=== PATIENT | female | born 1995 | race Caucasian/White ===

== ENCOUNTER 2017-03-25 18:12 | Emergency (ER) | payer OTHER ==
[~2017-03-25] VITALS: Ht 162.6 cm; Wt 90.7 kg
[~2017-03-25 18:12] MED LIST: BENADRYL25 MG PO; CHILD IBUP100 MG/5 M PO; CIPRO 500MG (E500 MG PO; CLEOCIN HCL300 M1 PO; CLEOCIN PA75 MG/5 ML PO; IBU600 MG PO; KETOROLAC TROME10 M1 PO; MACROBID 100 M100 MG PO; MOTRIN800 MG PO; NAPROSYN500 M1 PO; PEPCID20 M1 PO; PREDNISONE10 M2 PO; SULFATRIM 800-120 ML PO; TRAMADOL HCL50 M1 PO; ZOFRAN ODT4 M1 SL; ZOFRAN4 M1 SL; ZOFRAN4 MG PO
[2017-03-25 18:16] VITALS: BP 137/75
== END 2017-03-25 19:00 | disposition admitted as inpatient to this hospital (09) ==
LOC: ERH 18:12
DX: R21 Rash and other nonspecific skin eruption (principal)

== ENCOUNTER 2017-05-01 17:24 | Emergency (ER) | payer SELFPAY ==
[~2017-05-01] VITALS: Ht 165.1 cm; Wt 52.2 kg
[2017-05-01 17:36] VITALS: BP 120/78
[2017-05-01 17:50] LABS: ABSOLUTE BASOPHIL COUNT 0 /CUMM (0.0-0.2); ABSOLUTE EOSINOPHIL COUNT 0.3 /CUMM (0.0-0.7); ABSOLUTE LYMPH COUNT 2.4 /CUMM (1.2-3.4); ABSOLUTE MONOCYTE COUNT 0.8 /CUMM (0.10-0.60); BASOPHIL % 0.3 % (0.0-2.0); EOSINOPHIL % 2.5 % (0-5); GRANULOCYTE % 69.5 % (42.2-75.2); MEAN CORPUSCULAR VOLUME 84.9 FL (81.0-99.0); MEAN PLATELET VOLUME 7.7 FL (7.4-10.4); PLATELET COUNT 281 /CUMM (130-400); RBC DISTRIBUTION WIDTH 13.2 % (11.5-14.5); RED BLOOD CELL CT 4.71 /CUMM (4.20-5.40); WHITE BLOOD CELL COUNT 11.5 /CUMM (4.8-10.8)
[2017-05-01 18:00] LABS: PT 11.7 SEC (9.4-12.5); PTT 32 SEC (25-37)
--- NOTE | 2017-05-01 20:20 | CT SCAN REPORT ---
EXAMINATION: CT ABDOMEN AND PELVIS WITHOUT CONTRAST CLINICAL INFORMATION: Right lower quadrant pain. COMPARISON: None TECHNIQUE: Multidetector volumetric imaging was performed from the superior aspect of the liver through the pubic symphysis. Sagittal and coronal reformatted images were obtained on the technologist's workstation. DLP: 781.6 mGy-cm FINDINGS: LUNG BASES: The visualized lung bases are unremarkable. LIVER, GALLBLADDER, AND BILIARY TREE: The liver is normal in size, shape, and attenuation. Focal fatty infiltration noted around the falciform ligament. No biliary ductal dilatation is present. The gallbladder is not clearly seen. PANCREAS: Unremarkable. SPLEEN: Unremarkable. ADRENAL GLANDS: Unremarkable. KIDNEYS AND URETERS: The kidneys are normal in size, shape, and attenuation. No hydronephrosis, hydroureter, or calculi seen. No perinephric stranding. BLADDER: Unremarkable. GASTROINTESTINAL TRACT: The small and large bowel are unremarkable. The appendix is unremarkable. There is a moderate amount of stool in the rectosigmoid colon. ABDOMINAL WALL: No significant hernia is appreciated. LYMPH NODES: Normal. VASCULAR: Unremarkable. PELVIC VISCERA: Unremarkable. OSSEOUS STRUCTURES: Unremarkable. IMPRESSION: No acute intra-abdominal or pelvic process. No evidence of appendicitis. No nephrolithiasis or hydronephrosis.
--- NOTE | 2017-05-01 20:44 | ED GI/GU/ABDOMINAL COMPLAINT ---
History of Present Illness General Chief Complaint: Female Urogenital Problems Stated Complaint: BIBA FOR EVAL VAGINAL BLEED Source: patient Exam Limitations: no limitations Vital Signs & Intake/Output Vital Signs & Intake/Output Vital Signs Date Time Temp Pulse Resp B/P B/P Pulse O2 O2 Flow FiO2 Mean Ox Delivery Rate 05/01 1736 98.0 76 15 120/78 99 Room Air Room Air Allergies Coded Allergies: amoxicillin (Intermediate, HIVES 01/09/17) Reconcile Medications Clindamycin HCl (Cleocin HCl) 300 MG CAPSULE 1 CAP PO TID CELLULITIS Ibuprofen (Child Ibuprofen) 100 MG/5 ML ORAL.SUSP 30 ML PO Q6P PRN pain, fever Naproxen (Naprosyn) 500 MG TABLET 1 TAB PO BID PRN PAIN Nitrofurantoin Monohyd/M-Cryst (Macrobid 100 MG Capsule) 100 MG CAPSULE 1 CAP PO BID UTI with food Ondansetron (Zofran Odt) 4 MG TAB.RAPDIS 1 TAB SL TID PRN NAUSEA Sulfamethoxazole/Trimethoprim (Sulfatrim 800-160 MG/20 Ml Summer) 800 MG-160 MG/20 ML ORAL.SUSP 20 ML PO BID cellulitis Triage Note: PT BIBA FROM HOME FOR C/C OF SPOTTING AND ABD CRAMPING. LAST PERIOD MARCH. UNSURE IF . HX OF MISCARRIAGE LAST YEAR. SOME NAUSEA WITHOUT VOMITING. Triage Nurses Notes Reviewed? yes LMP (ages 10-50): now ? n Is pt currently ? No Onset: Gradual Duration: day(s): (2), changing over time, continues in ED Timing: recent history Quality/Severity: cramping Severity Numbers: 6 Location: suprapubic Radiation: no radiation Activities at Onset: none Prior Abdominal Problems: similar symptoms Sexually Active: Yes Last Time You Were Sexual: less than 2 months ago Use of Protection: No No Modifying Factors: none Associated Symptoms: abdominal pain, nausea/vomiting HPI: 22-year-old female past medical history depression presents for evaluation of nausea abdominal/pelvic cramping and vaginal bleeding. Patient states symptoms started about 2 days ago and have been intermittent. She states that the bleeding is dark red blood and is spotting. She states it feels similar to a period. There is been no passage of clots. She reports that abdominal cramping is located in the superpubic area and does not radiate. It is intermittent coming and going away completely every few minutes. Feels similar to period cramps. Last menstrual period was one month ago. Patient states that she had a miscarriage about one year ago and this feels similar. She is sexually active does not use control. No chest pain shortness of breath fever or dysuria vomiting diarrhea. She is not taking any medicine for this. (Garry Vanegas) Past History Travel History Traveled to [place] past 21 day No Medical History Any Pertinent Medical History? 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 No (Garry Vanegas) Review of Systems Review of Systems Constitutional: Reports: no symptoms. EENTM: Reports: no symptoms. Respiratory: Reports: no symptoms. Cardiovascular: Reports: no symptoms. GI: Reports: see HPI, abdominal pain, nausea. Genitourinary: Reports: see HPI. Musculoskeletal: Reports: no symptoms. Skin: Reports: no symptoms. Neurological/Psychological: Reports: no symptoms. Hematologic/Endocrine: Reports: no symptoms. Immunologic/Allergic: Reports: no symptoms. All Other Systems: Reviewed and Negative (Garry Vanegas) Physical Exam Physical Exam General Appearance: well developed/nourished, no apparent distress, alert, awake , obese Head: atraumatic, normal appearance Eyes: Bilateral: normal appearance, PERRL, EOMI. Ears, Nose, Throat, Mouth: hearing grossly normal, moist mucous membrane Neck: normal inspection, supple, full range of motion Respiratory: normal breath sounds, chest non-tender, no respiratory distress, lungs clear Cardiovascular: regular rate/rhythm, normal peripheral pulses Peripheral Pulses: 2+ radial (R), 2+ radial (L) Gastrointestinal: normal bowel sounds, soft, no organomegaly, tenderness (mild suprapubic ) Back: normal inspection, normal range of motion, no vertebral tenderness Extremities: normal range of motion Neurologic/Psych: no motor/sensory deficits, awake, alert, oriented x 3, normal gait, normal mood/affect Skin: intact, normal color, warm/dry Core Measures ACS in differential dx? No Sepsis Present: No Sepsis Focused Exam Completed? No (Garry Vanegas) Progress Differential Diagnosis: appendicitis, biliary colic, bowel obstruction, cholecystitis, diverticulitis, ectopic , intrauterine , kidney stone, ovarian cyst, ovarian torsion, pancreatitis, PID/cervicitis, SBO, threatened AB, UTI/pyelo Plan of Care: Orders Procedure Date/time Status URINE 05/01 1736 Complete URINALYSIS 05/01 1736 Complete TSH REFLEX 05/01 1736 Complete PARTIAL THROMBOPLASTIN TIME 05/01 1736 Complete PROTHROMBIN TIME 05/01 1736 Complete HUMAN BETA HCG SCREEN 05/01 1736 Complete COMPREHENSIVE METABOLIC PANEL 05/01 1736 Complete CBC WITHOUT DIFFERENTIAL 05/01 1736 Complete TYPE & SCREEN (NOT X-MATCH) 05/01 1736 Complete Laboratory Tests 05/01/17 1751: Urine Color YEL, Urine Clarity CLEAR, Urine pH 7.5, Ur Specific [place] 1.020, Urine Protein NEG, Urine Ketones NEG, Urine Nitrite NEG, Urine Bilirubin NEG, Urine Urobilinogen 1.0, Ur Leukocyte Esterase NEG, Ur Microscopic EXAM NOT REQUIRED, Urine Hemoglobin NEG, Urine Glucose NEG, Urine Test NEGATIVE 05/01/17 1543: Anion Gap 12, Estimated GFR > 60, BUN/Creatinine Ratio 10.0, Glucose 104 H, Calcium 9.5, Total Bilirubin 0.2, AST 18, ALT 28, Alkaline Phosphatase 43, Total Protein 6.9, Albumin 4.2, Globulin 2.7, Albumin/Globulin Ratio 1.6, TSH &T3 & Free T4 Intrp 0.761, Total Beta HCG NEGATIVE, PT 11.7, INR 1.12, APTT 32, CBC w Diff NO MAN DIFF REQ, RBC 4.71, MCV 84.9, MCH 28.0, MCHC 33.0, RDW 13.2, MPV 7.7 , Gran % 69.5, Lymphocytes % 20.5, Monocytes % 7.2, Eosinophils % 2.5, Basophils % 0.3, Absolute Granulocytes 8.0 H, Absolute Lymphocytes 2.4, Absolute Monocytes 0.8 H, Absolute Eosinophils 0.3, Absolute Basophils 0 Patient seen and evaluated. She is reporting abdominal cramping nausea and vaginal spotting. Her last vaginal. Was one month ago she states this feels like a period. Patient does is negative. She does have some lower abdominal tenderness we'll check a CT scan to rule out appendicitis. Patient was medicated with Zofran and Toradol. When patient came back from CT scan it was noted that she was missing from the room. We looked outside in the waiting room and around the emergency department without locating her. It was determined that she may have walked out. All blood work is within normal limits. CT scan does not show any acute findings. Diagnostic Imaging: Viewed by Me: CT Scan. Discussed w/RAD: CT Scan. Radiology Impression: PATIENT: AVIVA UGALDE PRESENT AGE: 22 PATIENT ACCOUNT NO: [id number] : 96 LOCATION: [facility] ORDERING PHYSICIAN: Garry BACON SERVICE DATE: 05/01/17 EXAM TYPE: CAT - CT ABD & PELVIS W/O IV CONTRAS EXAMINATION: CT ABDOMEN AND PELVIS WITHOUT CONTRAST CLINICAL INFORMATION: Right lower quadrant pain. COMPARISON: None TECHNIQUE: Multidetector volumetric imaging was performed from the superior aspect of the liver through the pubic symphysis. Sagittal and coronal reformatted images were obtained on the technologist's workstation. DLP: 781.6 mGy-cm FINDINGS: LUNG BASES: The visualized lung bases are unremarkable. LIVER, GALLBLADDER, AND BILIARY TREE: The liver is normal in size, shape, and attenuation. Focal fatty infiltration noted around the falciform ligament. No biliary ductal dilatation is present. The gallbladder is not clearly seen. PANCREAS: Unremarkable. SPLEEN: Unremarkable. ADRENAL GLANDS: Unremarkable. KIDNEYS AND URETERS: The kidneys are normal in size, shape, and attenuation. No hydronephrosis, hydroureter, or calculi seen. No perinephric stranding. BLADDER: Unremarkable. GASTROINTESTINAL TRACT: The small and large bowel are unremarkable. The appendix is unremarkable. There is a moderate amount of stool in the rectosigmoid colon. ABDOMINAL WALL: No significant hernia is appreciated. LYMPH NODES: Normal. VASCULAR: Unremarkable. PELVIC VISCERA: Unremarkable. OSSEOUS STRUCTURES: Unremarkable. IMPRESSION: No acute intra-abdominal or pelvic process. No evidence of appendicitis. No nephrolithiasis or hydronephrosis. DICTATED BY: Zander Giordano MD DATE/TIME DICTATED:05/01/172011 ELECTRIC INSTALLER:RAD.MCGUIRE DATE/TIME TRANSCRIBED:05/01/172011 CONFIDENTIAL, DO NOT COPY WITHOUT APPROPRIATE AUTHORIZATION. <Electronically signed in Other Vendor System> SIGNED BY: Zander Giordano MD 05/01/172019 Initial ED EKG: none (Garry Vanegas) Departure Departure Disposition: ER WALKOUT Condition: Stable Clinical Impression Primary Impression: Abdominal pain Qualifiers: Abdominal location: lower abdomen, unspecified Qualified Code: R10.30 - Lower abdominal pain, unspecified Referrals: Jadon Jimenez DO (PCP/Family) Departure Forms: Customer Survey General Discharge Information (Garry Vanegas) PA/SYSTEM TRAINER Co-Sign Statement Statement: ED Attending supervision documentation- I saw and evaluated the patient. I have also reviewed all the pertinent lab results and diagnostic results. I agree with the findings and the plan of care as documented in the PA's/SYSTEM TRAINER's documentation. x I have reviewed the ED Record and agree with the PA's/SYSTEM TRAINER's documentation. [] Additions or exceptions (if any) to the PAs/SYSTEM TRAINER's note and plan are summarized below: [] (Asif GRECO,Jason)
== END 2017-05-01 21:06 ==
LOC: ERH 17:24
PROVIDERS: Physician Assistant Medical
DX: R10.30 Lower abdominal pain, unspecified (principal)
CPT/HCPCS: 74176; 81003; 81025

== ENCOUNTER 2017-06-22 10:45 | Emergency (ER) | payer SELFPAY ==
[~2017-06-22] VITALS: Ht 162.6 cm; Wt 90.7 kg
--- NOTE | 2017-06-22 11:08 | ED GI/GU/ABDOMINAL COMPLAINT ---
History of Present Illness General Chief Complaint: Nausea, Vomiting, Diarrhea Stated Complaint: VOMITING SINCE FRIDAY Source: patient, family, old records Exam Limitations: no limitations Vital Signs & Intake/Output Vital Signs & Intake/Output Vital Signs Date Time Temp Pulse Resp B/P B/P Pulse O2 O2 Flow FiO2 Mean Ox Delivery Rate 06/22 1306 98.7 55 16 104/59 98 Room Air 06/22 1047 97.4 79 16 125/80 97 Room Air Allergies Coded Allergies: amoxicillin (Intermediate, HIVES 01/09/17) Reconcile Medications Clindamycin HCl (Cleocin HCl) 300 MG CAPSULE 1 CAP PO TID CELLULITIS Ibuprofen (Child Ibuprofen) 100 MG/5 ML ORAL.SUSP 30 ML PO Q6P PRN pain, fever Naproxen (Naprosyn) 500 MG TABLET 1 TAB PO BID PRN PAIN Nitrofurantoin Monohyd/M-Cryst (Macrobid 100 MG Capsule) 100 MG CAPSULE 1 CAP PO BID UTI with food Ondansetron (Zofran Odt) 4 MG TAB.RAPDIS 1 TAB SL TID PRN nausea Ondansetron (Zofran Odt) 4 MG TAB.RAPDIS 1 TAB SL TID PRN NAUSEA Sulfamethoxazole/Trimethoprim (Bactrim Ds Tablet) 800 MG-160 MG TABLET 1 TAB PO BID uti Sulfamethoxazole/Trimethoprim (Sulfatrim 800-160 MG/20 Ml Summer) 800 MG-160 MG/20 ML ORAL.SUSP 20 ML PO BID cellulitis Triage Note: REPORTS N/V/D SINCE THIS PAST FRIDAY. HAS NOT TAKEN ANYTHING FOR IT. UNABLE TO TALORATE PO. Triage Nurses Notes Reviewed? yes LMP (ages 10-50): unknown ? n Is pt currently ? No Onset: Abrupt Duration: day(s): (3), constant Timing: recent history Quality/Severity: vomiting Severity Numbers: 5 Location: no pain Radiation: no radiation Prior Abdominal Problems: none No Modifying Factors: none Associated Symptoms: diarrhea, nausea/vomiting HPI: 22-year-old female presents to ER for evaluation complaining of nausea vomiting diarrhea for the past 3 days. She denies any associated abdominal pain. Her last episode of vomiting was earlier this morning she is not taken anything for her symptoms. No sick contacts no recent travel. No black or bloody stools no hematemesis. She is unaware when her last menstrual cycle was. She denies any vaginal bleeding or discharge. No chest pain shortness of breath fever chills Past History Travel History Traveled to [place] past 21 day No Medical History Any Pertinent Medical History? 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 No Review of Systems Review of Systems Constitutional: Reports: see HPI. Comments Review of systems: See HPI, All other systems negative. Constitutional, no chills no fever, HEENT: no sore throat no congestion, Cardiovascular: No chest pain Skin: no rashes, no change in skin Respiratory: No dyspnea no cough no sputum GI: see hpi : No dysuria No hematuria, no frequency Muscle skeletal: No joint pain, no back pain Neurologic: , no headache Heme/endocrine: No bruising Physical Exam Physical Exam General Appearance: well developed/nourished, alert, awake Gastrointestinal: normal bowel sounds, soft, non-tender Comments: Well-developed well-nourished person in no acute distress HEENT: Normal EENT exam; PERRL, EOMI HEAD is atraumatic. moist mucous membranes. Neck: Supple, normal range of motion Back: Nontender, no CVA tenderness. Full range of motion Cardiovascular: Regular rate and rhythms no murmurs Respiratory: No respiratory distress. Patient speaking in full complete sentences. Breath sounds clear to auscultation bilaterally: NO W/R/R Abdomen: Soft, nontender nondistended, no appreciable organomegaly. Normal bowel sounds. No rebound/guarding, Extremity: No edema, full range of motion of extremities Neuro: Alert oriented x3, motor sensory normal, There were no obvious focal neurologic abnormalities. Skin: No appreciable rash on exposed skin, skin is warm and dry. Psych: Mood and affect is normal, memory and judgment is normal. Core Measures ACS in differential dx? No Sepsis Present: No Sepsis Focused Exam Completed? No Progress Differential Diagnosis: appendicitis, biliary colic, bowel obstruction, ectopic , gastritis, hepatitis, inflamm bowel dis, intrauterine , ovarian cyst, threatened AB, UTI/pyelo Plan of Care: Orders Procedure Date/time Status Add-on Test (ER Only) 06/22 1205 Active CULTURE,URINE 06/22 111 Active URINE 06/22 1056 Complete URINALYSIS 06/22 1056 Complete LIPASE 06/22 105 Complete COMPREHENSIVE METABOLIC PANEL 06/22 105 Complete CBC WITHOUT DIFFERENTIAL 06/22 105 Complete Laboratory Tests 06/22/17 1215: Anion Gap 12, Estimated GFR > 60, BUN/Creatinine Ratio 18.0, Glucose 83, Calcium 8.7, Total Bilirubin 0.4, AST 16, ALT 27, Alkaline Phosphatase 40, Total Protein 6.6, Albumin 3.8, Globulin 2.8, Albumin/Globulin Ratio 1.4, Lipase 62, CBC w Diff NO MAN DIFF REQ, RBC 4.49, MCV 85.7, MCH 28.7, MCHC 33.5, RDW 13.5, MPV 7.8 , Gran % 63.0, Lymphocytes % 25.0, Monocytes % 7.6, Eosinophils % 3.5, Basophils % 0.9, Absolute Granulocytes 5.9, Absolute Lymphocytes 2.4, Absolute Monocytes 0.7 H, Absolute Eosinophils 0.3, Absolute Basophils 0.1 06/22/17 1127: Urine Color YEL, Urine Clarity HAZ[place] H, Urine pH 7.0, Ur Specific [place] 1.025, Urine Protein NEG, Urine Ketones NEG, Urine Nitrite POS H, Urine Bilirubin NEG, Urine Urobilinogen 0.2, Ur Leukocyte Esterase SMALL H, Ur Microscopic SEDIMENT EXAMINED, Urine RBC 1-3, Urine WBC 3-5 H, Ur Epithelial Cells FEW, Urine Bacteria PACKD H, Urine Hemoglobin NEG, Urine Glucose NEG, Urine Test NEGATIVE Microbiology 06/22 111 URINE ROUT: Urine Culture - RECD Labs ordered old records reviewed patient medicated Zofran IV fluids she appears in no apparent distress at this time abdomen is soft nontender. I discussed with the patient her results. On repeat evaluation patient has had no vomiting here in the department tolerating by mouth challenge to remain soft Nontender discussed with early follow-up her labs-need for close follow-up with her primary care when diet return precautions were discussed she feels comfortable this plan Initial ED EKG: none Departure Departure Time of Disposition: 1300 Disposition: HOME OR SELF CARE Condition: Stable Clinical Impression Primary Impression: Nausea vomiting and diarrhea Secondary Impressions: UTI (urinary tract infection) Referrals: Jadon Jimenez DO (PCP/Family) Additional Instructions: zofran for nausea. Bactrim as directed .bland diet, clear liquids, advance as tolerated. follow up with your pmd, return with any concerns Departure Forms: Customer Survey General Discharge Information Prescriptions: Current Visit Scripts Sulfamethoxazole/Trimethoprim (Bactrim Ds Tablet) 1 TAB PO BID #6 TAB Ondansetron (Zofran Odt) 1 TAB SL TID PRN nausea #10 TAB
[2017-06-22 12:25] LABS: ABSOLUTE BASOPHIL COUNT 0.1 /CUMM (0.0-0.2); ABSOLUTE EOSINOPHIL COUNT 0.3 /CUMM (0.0-0.7); ABSOLUTE GRANULOCYTE CT 5.9 /CUMM (1.4-6.5); ABSOLUTE LYMPH COUNT 2.4 /CUMM (1.2-3.4); ABSOLUTE MONOCYTE COUNT 0.7 /CUMM (0.10-0.60); BASOPHIL % 0.9 % (0.0-2.0); EOSINOPHIL % 3.5 % (0-5); HEMATOCRIT 38.5 % (37-47); MEAN CORPUSCULAR HGB 28.7 PG (27.0-31.0); MEAN CORPUSCULAR HGB CONC 33.5 G/DL (33.0-37.0); MEAN CORPUSCULAR VOLUME 85.7 FL (81.0-99.0); MEAN PLATELET VOLUME 7.8 FL (7.4-10.4); PLATELET COUNT 229 /CUMM (130-400); RBC DISTRIBUTION WIDTH 13.5 % (11.5-14.5); RED BLOOD CELL CT 4.49 /CUMM (4.20-5.40); WHITE BLOOD CELL COUNT 9.4 /CUMM (4.8-10.8)
[2017-06-22] MEDS ORDERED: ZOFRAN ODT4 M1 SL (13:01)
[2017-06-22] MEDS ORDERED: BACTRIM DS TAB1 EACH PO (13:01)
[2017-06-22 13:06] VITALS: BP 104/59
== END 2017-06-22 13:08 ==
LOC: ERH 10:45
PROVIDERS: Physician Assistant Medical
DX: N39.0 Urinary tract infection, site not specified (principal)
CPT/HCPCS: 81001; 81025; 87086; 96361; 96374; J2405

== ENCOUNTER 2017-09-23 19:59 | Emergency (ER) | payer OTHER ==
[~2017-09-23] VITALS: Ht 165.1 cm; Wt 90.7 kg
[~2017-09-23 19:59] MED LIST changes: +BACTRIM DS TAB1 EACH PO
[2017-09-23 20:01] VITALS: BP 143/79
--- NOTE | 2017-09-23 21:26 | ED SKIN/ALLERGY COMPLAINT ---
History of Present Illness General Chief Complaint: Skin Rash/ Abcess Stated Complaint: "MY CYST ON MY TAILBONE CAME BACK.NEED IT DRAINED" Source: patient Exam Limitations: no limitations Vital Signs & Intake/Output Vital Signs & Intake/Output Vital Signs Date Time Temp Pulse Resp B/P B/P Pulse O2 O2 Flow FiO2 Mean Ox Delivery Rate 09/23 2222 98 Room Air 09/23 2000 98.6 83 18 143/79 99 Room Air ED Intake and Output 09/24 0000 09/23 1200 Intake Total 120 Output Total Balance 120 Intake, IV 0 Intake, Oral 120 Patient 200 lb Weight Weight Reported by Patient Measurement Method Allergies Coded Allergies: amoxicillin (Intermediate, HIVES 01/09/17) Reconcile Medications Cephalexin (Keflex) 500 MG CAPSULE 1 CAP PO BID CELLULITIS Clindamycin HCl (Cleocin HCl) 300 MG CAPSULE 1 CAP PO TID CELLULITIS Ibuprofen (Child Ibuprofen) 100 MG/5 ML ORAL.SUSP 30 ML PO Q6P PRN pain, fever Meloxicam (Mobic) 15 MG TABLET 1 TAB PO DAILY PRN pain Naproxen (Naprosyn) 500 MG TABLET 1 TAB PO BID PRN PAIN Nitrofurantoin Monohyd/M-Cryst (Macrobid 100 MG Capsule) 100 MG CAPSULE 1 CAP PO BID UTI with food Ondansetron (Zofran Odt) 4 MG TAB.RAPDIS 1 TAB SL TID PRN nausea Ondansetron (Zofran Odt) 4 MG TAB.RAPDIS 1 TAB SL TID PRN NAUSEA Sulfamethoxazole/Trimethoprim (Bactrim Ds Tablet) 800 MG-160 MG TABLET 1 TAB PO BID uti Sulfamethoxazole/Trimethoprim (Sulfatrim 800-160 MG/20 Ml Summer) 800 MG-160 MG/20 ML ORAL.SUSP 20 ML PO BID cellulitis Sulfamethoxazole/Trimethoprim (Bactrim Ds Tablet) 800 MG-160 MG TABLET 1 TAB PO BID CELLULITIS Triage Note: PT FROM HOME C/O CYST ON TAILBONE, UNABLE TO VIEW IN TRIAGE. PT STATES THAT A FEW MONTHS AGO THE SAME AREA HAD A CYST, IT WAS DRAINED. PT STATES NOW THAT ANOTHER CYST IN THE SAME AREA FORMED 3 DAYS PRIOR AND PROGRESSIVELY BECOMING WORSE. VSS. PT TEXTING IN TRIAGE. NO DISTRESS NOTED. Triage Nurses Notes Reviewed? yes Onset: Gradual Duration: getting worse Severity: severe Severity Numbers: 7 : No Patient currently breastfeeds: No HPI: Patient is a 22-year-old female who since May and with a 3 day history of gradual worsening tender swollen region to her sacral aspect of her body where she states that in the past she's had incision and drainage performed where she feels very similar to previous episodes. Denies any fever chills discharged from the skin and noticed redness around the region. (Blaine Crowder) Past History Travel History Traveled to [place] past 21 day No Medical History Any Pertinent Medical History? 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 No (Blaine Crowder) Review of Systems Review of Systems Constitutional: Reports: no symptoms. EENTM: Reports: no symptoms. Respiratory: Reports: no symptoms. Cardiovascular: Reports: no symptoms. GI: Reports: no symptoms. Genitourinary: Reports: no symptoms. Musculoskeletal: Reports: see HPI. Skin: Reports: see HPI. Neurological/Psychological: Reports: no symptoms. Hematologic/Endocrine: Reports: no symptoms. Immunologic/Allergic: Reports: no symptoms. All Other Systems: Reviewed and Negative (Blaine Crowder) Physical Exam Physical Exam General Appearance: no apparent distress, alert, comfortable Head: atraumatic Eyes: Bilateral: normal appearance. Ears, Nose, Throat: hearing grossly normal Respiratory: no respiratory distress Gastrointestinal: normal bowel sounds, soft Extremities: normal inspection, no edema Skin: intact Diagram Body: 1) Noted fluctuance point tenderness and erythema no active discharge (Blaine Crowder) Progress Differential Diagnosis: abscess/cellulitis Plan of Care: Orders Procedure Date/time Status TRUNK AREA CULTURE 09/23 2213 Active Microbiology 09/23 2214 TRUNK: Culture & Sensitivity - RES 09/23 2214 TRUNK: Gram Stain - RES Due to history of present illness and exam findings patient has suspicion of abscess to the sacral region using sterile technique of chlorhexidine I applied to the region then using approximately 10 mL of 1% lidocaine for local anesthesia and then using a #11 blade I made a 1 cm incision in which moderate malodorous purulent discharge was excised hemostat was used FOR INNOCULATION culture was obtained gauze and Tegaderm were applied patient tolerated well. (Blaine Crowder) Departure Departure Disposition: HOME OR SELF CARE Condition: Stable Clinical Impression Primary Impression: Abscess of sacrum Secondary Impressions: Cellulitis of sacral region Referrals: Jadon Jimenez DO (PCP/Family) Additional Instructions: As discussed begin the prescription meloxicam for pain and the prescription of Bactrim and Keflex as directed for the full course, prescriptions waiting at [facility]. Begin to apply warm compresses the region. If symptoms worsen or IF YOU develop new concerning symptom return to emergency room. Return to emergency room in 2 days for recheck of symptoms and wound evaluation Departure Forms: Customer Survey General Discharge Information Prescriptions: Current Visit Scripts Meloxicam (Mobic) 1 TAB PO DAILY PRN pain #7 TAB Cephalexin (Keflex) 1 CAP PO BID #20 CAP Sulfamethoxazole/Trimethoprim (Bactrim Ds Tablet) 1 TAB PO BID #20 TAB (Blaine Crowder) PA/KNITTING INSPECTOR Co-Sign Statement Statement: ED Attending supervision documentation- [] I saw and evaluated the patient. I have also reviewed all the pertinent lab results and diagnostic results. I agree with the findings and the plan of care as documented in the PA's/KNITTING INSPECTOR's documentation. [x] I have reviewed the ED Record and agree with the PA's/KNITTING INSPECTOR's documentation. [] Additions or exceptions (if any) to the PAs/KNITTING INSPECTOR's note and plan are summarized below: [] (Reginald Presley DO)
[2017-09-23] MEDS ORDERED: MOBIC15 M1 PO (22:00)
[2017-09-23] MEDS ORDERED: KEFLEX500 M1 PO (22:00)
[2017-09-23] MEDS ORDERED: BACTRIM DS TAB1 EACH PO (22:00)
== END 2017-09-23 22:34 ==
LOC: ERH 19:59
DX: A18.01 Tuberculosis of spine (principal); L03.312 Cellulitis of back [any part except buttock and flank]
CPT/HCPCS: 87070; J2001